=== PATIENT | female | born 1995 | race Caucasian/White ===

== ENCOUNTER 2017-12-11 20:18 | Emergency (ER) | payer OTHER ==
[~2017-12-11] VITALS: Ht 167.6 cm; Wt 63.5 kg
[~2017-12-11 20:18] MED LIST: BIRTH CONTRO
--- NOTE | 2017-12-11 22:56 | NUR ---
Pt c/o cough, sore throat, for 5 days, diarrhea x 2 days, not getting better. Pt denies CP, SOB, dizziness, n/v, no other complaints, no distress noted.
--- NOTE | 2017-12-11 23:33 | NUR ---
Gave pt RX and d/c instructions, verbalized understanding.
== END 2017-12-11 23:33 | disposition home or self-care (01) ==
LOC: ER 20:21
DX: J11.1 Influenza due to unidentified influenza virus with other respiratory manifestations (principal); Z79.3 Long term (current) use of hormonal contraceptives
CPT/HCPCS: 87400; 99284; A4663

== ENCOUNTER 2020-03-19 19:41 | Emergency (ER) | payer BC, OTHER ==
[~2020-03-19] VITALS: Ht 167.6 cm; Wt 68.0 kg
--- NOTE | 2020-03-19 19:55 | NUR ---
urine sample provided
[2020-03-19 20:09] LABS: *BILIRUBIN,URIN NEGATIVE (NEGATIVE); *BLOOD, URINE 3+ (NEGATIVE); *CLARITY,URINE CLOUDY (CLEAR); *KETONES,URINE NEGATIVE (NEGATIVE); *UROBILINOGEN,URINE 0.2 E.U./dl (NORMAL); LEUKOCYTE ESTERASE ,URINE 2+ (NEGATIVE); NITRITE, URINE POSITIVE (NEGATIVE); UGLUCOSE NEGATIVE (NEGATIVE)
[2020-03-19 20:10] LABS: BASOPHILS # (AUTO) 0.1 K/uL (0.0-8.0); BASOPHILS % (AUTO) 0.9 % (0.0-2.0); EOSINOPHILS # (AUTO) 0.2 K/uL (0.0-0.7); EOSINOPHILS % (AUTO) 1.7 % (0.0-7.0); HEMATOCRIT 39.6 % (31.2-41.9); HEMOGLOBIN 13.1 g/dL (10.9-14.3); LYMPHOCYTES # (AUTO) 1.7 K/uL (20.0-40.0); LYMPHOCYTES % (AUTO) 15.9 % (20.5-51.5); MEAN CORPUSCULAR HEMOGLOBIN 28.3 uug (24.7-32.8); MEAN CORPUSCULAR HGB CONC 33 g/dL (32.3-35.6); MONOCYTES # (AUTO) 0.8 K/uL (2.0-10.0); MONOCYTES % (AUTO) 7.6 % (0.0-11.0); NEUTROPHILS # (AUTO) 8.1 K/uL (1.8-8.9); NEUTROPHILS % (AUTO) 73.9 % (38.5-71.5); PLATELET COUNT (AUTO) 196 K/uL (179-408); RED BLOOD CELL COUNT(AUTO) 4.61 MIL/uL (3.63-4.92); WHITE BLOOD COUNT (AUTO) 10.9 K/uL (3.8-11.8)
--- NOTE | 2020-03-19 20:11 | NUR ---
Dr. Cobos at bedside for MSE.
[2020-03-19 20:12] LABS: *URINE HCG, QUAL NEGATIVE (NEGATIVE)
[2020-03-19 20:22] LABS: *COLOR,URINE DARK YELLOW (YELLOW)
[2020-03-19 20:23] LABS: BACTERIA,URINE FEW /HPF (NONE SEEN); RBC,URINE 80-100 /HPF (0-3); SQUAMOUS EPITHELIAL CELL,UR FEW /HPF (NONE SEEN); WBC,URINE TNTC /HPF (0-3)
[2020-03-19 20:27] LABS: BILIRUBIN,DIRECT 0.1 mg/dL (0.0-0.2); BILIRUBIN,TOTAL 0.5 mg/dL (0.2-1.0); TOTAL PROTEIN, SERUM 7.7 g/dL (6.4-8.2)
--- NOTE | 2020-03-19 20:28 | NUR ---
Dr. Cobos performing pelvic exam, chapperoned by Cinda GARCÍA.
[2020-03-19] MEDS ORDERED: KETOROLAC TROMETHAMINE 60 MG INJ IM ONE ×2 (20:45→20:48)
--- NOTE | 2020-03-19 20:58 | NUR ---
Patient discharged to home in stable condition. Written and verbal after care instructions given. Patient verbalizes understanding of instructions. Stressed follow up or return to ER for worsening s/s., prescription given and explained , verbalizes undrstanding , vs stable , alert oriented , ambulatory with steady gait , denies distress
[2020-03-19 21:03] VITALS: BP 126/63
== END 2020-03-19 21:04 | disposition home or self-care (01) ==
LOC: ER 19:45
DX: N39.0 Urinary tract infection, site not specified (principal)
CPT/HCPCS: 36415; 80048; 80076; 81001; 83690; 84703; 85025; 87086; 96372; 99283; J1885; 87077; A4663

== ENCOUNTER 2023-10-21 17:34 | Emergency (ER) | payer BC, OTHER ==
[~2023-10-21] VITALS: Ht 167.6 cm; Wt 86.2 kg
[2023-10-21] MEDS ORDERED: RABE20TA32 PO (18:12)
[2023-10-21] MEDS ORDERED: SUCR1ORA PO (18:12)
[2023-10-21 19:52] VITALS: BP 115/68; O2SAT 100
== END 2023-10-21 19:52 | disposition home or self-care (01) ==
LOC: ER 17:37
DX: R13.10 Dysphagia, unspecified (principal); K21.00 Gastro-esophageal reflux disease with esophagitis, without bleeding; R07.89 Other chest pain; Z79.899 Other long term (current) drug therapy
CPT/HCPCS: 71045; A4606; A4663

== ENCOUNTER 2023-11-02 17:38 | Emergency (ER) | payer OTHER ==
[~2023-11-02] VITALS: Ht 167.6 cm; Wt 86.2 kg
[~2023-11-02 17:38] MED LIST changes: +RABE20TA32 PO; +SUCR1ORA PO
[2023-11-02] MEDS ORDERED: DEXAMETHASONE SOD PHOSPHATE 4 MG INJ IM ONE (22:45)
[2023-11-02] MEDS ORDERED: DEXAMETHASONE SOD PHOSPHATE 4 MG INJ ONE (22:47)
[2023-11-02 23:26] VITALS: BP 125/89; TEMP 98.8; O2SAT 99
== END 2023-11-02 23:26 | disposition home or self-care (01) ==
LOC: ER 17:41
DX: J04.0 Acute laryngitis (principal); R05.9 Cough, unspecified; Z20.822 Contact with and (suspected) exposure to COVID-19; Z79.899 Other long term (current) drug therapy
CPT/HCPCS: 99284; 71045; 87426; 96372; J1100; A4606; A4663